=== PATIENT | male | born 1995 | race Caucasian/White ===

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

== ENCOUNTER 2017-01-15 18:37 | Emergency (ER) | payer SELFPAY ==
[~2017-01-15] VITALS: Wt 105.2 kg
[~2017-01-15 18:37] MED LIST changes: +AMOXICILLIN500 M2 PO
[2017-01-15] MEDS ORDERED: PREDNISONE10 MG PO (19:15)
== END 2017-01-15 19:37 | disposition home or self-care (01) ==
LOC: ED 18:37
DX: L23.7 Allergic contact dermatitis due to plants, except food (principal); Z88.0 Allergy status to penicillin; Z79.899 Other long term (current) drug therapy

== ENCOUNTER 2017-06-06 18:19 | Emergency (ER) | payer SELFPAY ==
[~2017-06-06] VITALS: Ht 193 cm; Wt 108.9 kg
[~2017-06-06 18:19] MED LIST changes: +PREDNISONE10 MG PO
[2017-06-06] MEDS ORDERED: CHLORZOXAZONE500 M2 PO (18:35)
[2017-06-06] MEDS ORDERED: NAPROSYN500 MG PO (18:35)
== END 2017-06-06 20:03 | disposition home or self-care (01) ==
LOC: ED 18:19
DX: M54.5 Low back pain (principal); R03.0 Elevated blood-pressure reading, without diagnosis of hypertension; Z88.0 Allergy status to penicillin; W00.0XXA Fall on same level due to ice and snow, initial encounter; Y93.89 Activity, other specified; Y92.89 Other specified places as the place of occurrence of the external cause; Y99.8 Other external cause status

== ENCOUNTER 2017-06-09 14:20 | Emergency (ER) | payer SELFPAY ==
[~2017-06-09] VITALS: Ht 193 cm; Wt 108.9 kg
[~2017-06-09 14:20] MED LIST changes: +CHLORZOXAZONE500 M2 PO
[2017-06-09 15:19] LABS: BASO % 0.2 % (0.0-1.0); EOS # 0.3 10*3/uL (0.0-0.4); EOS % 5.1 % (1.0-4.0); HEMATOCRIT 44.2 % (42.0-52.0); HEMOGLOBIN 15.1 g/dl (14.0-18.0); LYMPH # 1.7 10*3/uL (1.3-4.4); LYMPH % 28.8 % (27.0-41.0); MEAN CELL VOLUME 84.8 fl (80.0-94.0); MEAN CORPUSCULAR HGB CONC 34.2 g/dl (33.0-37.0); MEAN PLATELET VOLUME 9.2 fl (9.6-12.3); MONO # 0.3 10*3/uL (0.1-1.0); MONO % 5.6 % (3.0-9.0); NEUT # 3.4 10*3/uL (2.3-7.9); NEUT % 60.1 % (47.0-73.0); PLATELET COUNT AUTOMATED 201 10*3/uL (130-400); RED BLOOD COUNT 5.21 10*6/uL (4.50-5.90); RED CELL DISTRI WIDTH 13.4 % (0-14.5); WHITE BLOOD COUNT 5.7 10*3/uL (4.8-10.8)
[2017-06-09 15:36] LABS: ALKALINE PHOSPHATASE 84 U/L (45-117); BUN 10 mg/dl (7-24); CHLORIDE 107 mmol/L (98-107); CREATININE 0.91 mg/dL (0.70-1.30); SGOT/AST 23 IU/L (3-35); SGPT/ALT 32 U/L (12-78); SODIUM 142 mmol/L (136-145)
[2017-06-09] MEDS ORDERED: CEPHALEXIN500 M1 PO (16:15)
[2017-06-09] MEDS ORDERED: SEPTDS PO (16:15)
[2017-06-09] MEDS ORDERED: NORCO 5-325 TA1 EACH PO (16:29)
[2017-06-09] MEDS ORDERED: CLINDAMYCIN HC300 MG PO (16:29)
== END 2017-06-09 16:39 | disposition home or self-care (01) ==
LOC: ED 14:20
PROVIDERS: Physician Assistant
DX: K61.1 Rectal abscess (principal); Z79.899 Other long term (current) drug therapy; Z88.0 Allergy status to penicillin

== ENCOUNTER 2017-06-16 05:51 | Emergency (ER) | payer SELFPAY ==
[~2017-06-16] VITALS: Ht 193 cm; Wt 108.9 kg
[~2017-06-16 05:51] MED LIST changes: +CEPHALEXIN500 M1 PO; +CLINDAMYCIN HC300 MG PO; +NORCO 5-325 TA1 EACH PO; +SEPTDS PO
[2017-06-16] MEDS ORDERED: ANUSOL-HC25 MG R (06:07)
== END 2017-06-16 06:31 | disposition home or self-care (01) ==
LOC: ED 05:51
DX: K64.4 Residual hemorrhoidal skin tags (principal); Z88.0 Allergy status to penicillin; Z79.899 Other long term (current) drug therapy

== ENCOUNTER 2017-11-25 22:51 | Emergency (ER) | payer SELFPAY ==
[~2017-11-25] VITALS: Ht 193 cm; Wt 113.4 kg
[~2017-11-25 22:51] MED LIST changes: +ANUSOL-HC25 MG R
[2017-11-26 00:12] LABS: BASO % 0.1 % (0.0-1.0); EOS # 0.3 10*3/uL (0.0-0.4); EOS % 3.2 % (1.0-4.0); HEMATOCRIT 47.6 % (42.0-52.0); HEMOGLOBIN 15.9 g/dl (14.0-18.0); LYMPH # 2.3 10*3/uL (1.3-4.4); LYMPH % 23.2 % (27.0-41.0); MEAN CELL VOLUME 86.5 fl (80.0-94.0); MEAN CORPUSCULAR HGB 28.9 pg (27.0-31.0); MEAN CORPUSCULAR HGB CONC 33.4 g/dl (33.0-37.0); MONO # 0.6 10*3/uL (0.1-1.0); MONO % 5.7 % (3.0-9.0); NEUT # 6.8 10*3/uL (2.3-7.9); NEUT % 67.5 % (47.0-73.0); PLATELET COUNT AUTOMATED 228 10*3/uL (130-400); RED CELL DISTRI WIDTH 13.2 % (0-14.5)
[2017-11-26 00:19] LABS: ALBUMIN 3.9 gm/dl (3.1-4.5); ALKALINE PHOSPHATASE 86 U/L (45-117); BUN 11 mg/dl (7-24); CHLORIDE 106 mmol/L (98-107); CREATININE 1.13 mg/dL (0.70-1.30); POTASSIUM 3.7 mmol/L (3.5-5.1); SGOT/AST 22 IU/L (3-35); SGPT/ALT 34 U/L (12-78); SODIUM 141 mmol/L (136-145); TOTAL PROTEIN 7.3 gm/dL (6.4-8.2)
== END 2017-11-26 01:52 | disposition home or self-care (01) ==
LOC: ED 22:51
PROVIDERS: Nurse Practitioner
DX: B34.9 Viral infection, unspecified (principal); R10.13 Epigastric pain; Z79.899 Other long term (current) drug therapy; Z88.0 Allergy status to penicillin

== ENCOUNTER 2018-02-20 07:42 | Emergency (ER) | payer BC ==
[~2018-02-20] VITALS: Ht 193 cm; Wt 113.4 kg
[2018-02-20] MEDS ORDERED: ZOFRAN ODT4 MG SL (07:55)
[2018-02-20] MEDS ORDERED: ZITHROMAX250 MG PO (07:55)
[2018-02-20] MEDS ORDERED: IMODIUM A-D2 M2 PO (07:55)
== END 2018-02-20 07:57 | disposition home or self-care (01) ==
LOC: ED 07:42
DX: J20.9 Acute bronchitis, unspecified (principal); K52.9 Noninfective gastroenteritis and colitis, unspecified; Z88.0 Allergy status to penicillin

== ENCOUNTER 2018-04-04 12:22 | Emergency (ER) | payer BC ==
[~2018-04-04] VITALS: Ht 193 cm; Wt 111.1 kg
[~2018-04-04 12:22] MED LIST changes: +IMODIUM A-D2 M2 PO; +ZITHROMAX250 MG PO
[2018-04-04] MEDS ORDERED: Fioricet 325 MG1 TAB PO (13:16)
== END 2018-04-04 13:12 | disposition home or self-care (01) ==
LOC: ED 12:22
DX: R51 Headache (principal); H53.8 Other visual disturbances; F17.200 Nicotine dependence, unspecified, uncomplicated; Z88.0 Allergy status to penicillin

== ENCOUNTER 2018-06-07 05:19 | Emergency (ER) | payer BC ==
[~2018-06-07] VITALS: Ht 193 cm; Wt 113.4 kg
[~2018-06-07 05:19] MED LIST changes: +Fioricet 325 MG1 TAB PO
[2018-06-07] MEDS ORDERED: CLARITIN10 MG PO (06:08)
== END 2018-06-07 06:44 | disposition home or self-care (01) ==
LOC: ED 05:19
DX: B34.9 Viral infection, unspecified (principal); F17.200 Nicotine dependence, unspecified, uncomplicated; Z88.0 Allergy status to penicillin

== ENCOUNTER 2018-06-14 23:59 | Emergency (ER) | payer BC ==
[~2018-06-14] VITALS: Ht 193 cm; Wt 108.9 kg
== END 2018-06-15 01:14 | disposition home or self-care (01) ==
LOC: ED 23:59
DX: S62.316A Displaced fracture of base of fifth metacarpal bone, right hand, initial encounter for closed fracture (principal); S62.91XA Unspecified fracture of right hand, initial encounter for closed fracture; S60.412A Abrasion of right middle finger, initial encounter; Z88.0 Allergy status to penicillin; W22.01XA Walked into wall, initial encounter; Y93.89 Activity, other specified; Y92.89 Other specified places as the place of occurrence of the external cause; Y99.8 Other external cause status

== ENCOUNTER → 2018-06-16 | Outpatient (CLI) | payer BC | END | disposition home or self-care (01) | LOC: ORTHO 00:29 | DX: S62.306D Unspecified fracture of fifth metacarpal bone, right hand, subsequent encounter for fracture with routine healing (principal); X58.XXXD Exposure to other specified factors, subsequent encounter ==

== ENCOUNTER → 2018-08-17 | Outpatient (CLI) | payer BC | END | disposition home or self-care (01) | LOC: ORTHO 01:06 | DX: S62.306D Unspecified fracture of fifth metacarpal bone, right hand, subsequent encounter for fracture with routine healing (principal); X58.XXXD Exposure to other specified factors, subsequent encounter ==

== ENCOUNTER → 2018-08-31 | Outpatient (CLI) | payer BC | END | disposition home or self-care (01) | LOC: ORTHO 01:13 | DX: S62.306D Unspecified fracture of fifth metacarpal bone, right hand, subsequent encounter for fracture with routine healing (principal); X58.XXXD Exposure to other specified factors, subsequent encounter ==

== ENCOUNTER 2018-10-14 18:12 | Emergency (ER) | payer BC ==
[~2018-10-14] VITALS: Ht 193 cm; Wt 108.9 kg
[2018-10-14] MEDS ORDERED: CLINDAMYCIN HC300 MG PO (18:30)
[2018-10-14] MEDS ORDERED: NAPROSYN500 MG PO (18:30)
[2018-12-26] MEDS ORDERED: NAPROSYN500 MG PO (19:05)
[2018-12-26] MEDS ORDERED: MEDROL DOSEPAK4 MG PO (19:05)
[2018-12-26] MEDS ORDERED: ROBAXIN500 M1 PO (19:05)
== END 2018-10-14 18:40 | disposition home or self-care (01) ==
LOC: ED 18:12
DX: K04.7 Periapical abscess without sinus (principal); Z88.0 Allergy status to penicillin; Z79.899 Other long term (current) drug therapy

== ENCOUNTER 2020-01-23 19:55 | Emergency (ER) | payer OTHER ==
[~2020-01-23] VITALS: Ht 195.5 cm; Wt 111.1 kg
[~2020-01-23 19:55] MED LIST changes: +ROBAXIN500 M1 PO
[2020-01-23] MEDS ORDERED: IBUPROFEN600 MG PO (22:57)
== END 2020-01-23 23:55 | disposition home or self-care (01) ==
LOC: ED 19:55
DX: S93.602A Unspecified sprain of left foot, initial encounter (principal); F90.9 Attention-deficit hyperactivity disorder, unspecified type; F17.200 Nicotine dependence, unspecified, uncomplicated; Z88.0 Allergy status to penicillin; Z79.899 Other long term (current) drug therapy; Z79.2 Long term (current) use of antibiotics; W18.49XA Other slipping, tripping and stumbling without falling, initial encounter; Y93.01 Activity, walking, marching and hiking; Y92.89 Other specified places as the place of occurrence of the external cause; Y99.8 Other external cause status

== ENCOUNTER 2020-03-08 11:45 | Emergency (ER) | payer OTHER ==
[~2020-03-08 11:45] MED LIST changes: +IBUPROFEN600 MG PO
[2020-03-08 13:06] LABS: BASO % 0.1 % (0.0-1.0); EOS # 0.2 10*3/uL (0.0-0.4); EOS % 2.4 % (1.0-4.0); HEMATOCRIT 48.4 % (42.0-52.0); LYMPH # 1.2 10*3/uL (1.3-4.4); LYMPH % 16.4 % (27.0-41.0); MEAN CELL VOLUME 84.6 fl (80.0-94.0); MEAN CORPUSCULAR HGB 28.8 pg (27.0-31.0); MEAN CORPUSCULAR HGB CONC 34.1 g/dl (33.0-37.0); MEAN PLATELET VOLUME 8.6 fl (9.6-12.3); MONO # 0.7 10*3/uL (0.1-1.0); MONO % 8.8 % (3.0-9.0); NEUT # 5.4 10*3/uL (2.3-7.9); PLATELET COUNT AUTOMATED 223 10*3/uL (130-400); RED BLOOD COUNT 5.72 10*6/uL (4.50-5.90); RED CELL DISTRI WIDTH 12.6 % (0-14.5); WHITE BLOOD COUNT 7.5 10*3/uL (4.8-10.8)
[2020-03-08 13:22] LABS: ALBUMIN 4.2 gm/dl (3.1-4.5); ALKALINE PHOSPHATASE 87 U/L (45-117); BUN 13 mg/dl (7-24); CHLORIDE 109 mmol/L (98-107); CREATININE 1.04 mg/dL (0.70-1.30); LIPASE 35 U/L (73-393); POTASSIUM 4.3 mmol/L (3.5-5.1); SGOT/AST 32 IU/L (3-35); SGPT/ALT 50 U/L (12-78); SODIUM 140 mmol/L (136-145); TOTAL PROTEIN 7.7 gm/dL (6.4-8.2)
[2020-03-08] MEDS ORDERED: CEFUROXIME250 MG PO ×2 (14:00)
== END 2020-03-08 14:12 | disposition home or self-care (01) ==
LOC: ED 11:45
PROVIDERS: Nurse Practitioner Family
DX: H66.91 Otitis media, unspecified, right ear (principal); Z88.0 Allergy status to penicillin; Z79.899 Other long term (current) drug therapy; Z20.828 Contact with and (suspected) exposure to other viral communicable diseases

== ENCOUNTER 2020-03-27 17:32 | Emergency (ER) | payer OTHER ==
[~2020-03-27] VITALS: Ht 195.5 cm; Wt 108.9 kg
[~2020-03-27 17:32] MED LIST changes: +CEFUROXIME250 MG PO
[2020-03-27] MEDS ORDERED: CYCLOBENZAPRINE5 M3 PO (19:20)
[2020-03-27] MEDS ORDERED: MEDROL DOSEPAK4 MG PO (19:20)
== END 2020-03-27 19:51 | disposition home or self-care (01) ==
LOC: ED 17:32
DX: S39.012A Strain of muscle, fascia and tendon of lower back, initial encounter (principal); Z88.0 Allergy status to penicillin; W10.8XXA Fall (on) (from) other stairs and steps, initial encounter; Y93.89 Activity, other specified; Y92.89 Other specified places as the place of occurrence of the external cause; Y99.8 Other external cause status

== ENCOUNTER 2020-05-09 13:46 | Emergency (ER) | payer OTHER ==
[~2020-05-09] VITALS: Wt 113.4 kg
[~2020-05-09 13:46] MED LIST changes: +CYCLOBENZAPRINE5 M3 PO
== END 2020-05-09 16:23 | disposition home or self-care (01) ==
LOC: ED 13:46
DX: R11.2 Nausea with vomiting, unspecified (principal); R10.10 Upper abdominal pain, unspecified; Z53.21 Procedure and treatment not carried out due to patient leaving prior to being seen by health care provider

== ENCOUNTER 2020-05-15 07:47 | Emergency (ER) | payer OTHER ==
[~2020-05-15] VITALS: Ht 195.5 cm; Wt 113.4 kg
[2020-05-15 08:32] LABS: BASO % 0.3 % (0.0-1.0); EOS # 0.1 10*3/uL (0.0-0.4); EOS % 1.8 % (1.0-4.0); HEMATOCRIT 46.2 % (42.0-52.0); LYMPH # 1.8 10*3/uL (1.3-4.4); LYMPH % 24.8 % (27.0-41.0); MEAN CELL VOLUME 85.1 fl (80.0-94.0); MEAN CORPUSCULAR HGB 28.5 pg (27.0-31.0); MEAN CORPUSCULAR HGB CONC 33.5 g/dl (33.0-37.0); MONO # 0.4 10*3/uL (0.1-1.0); MONO % 4.9 % (3.0-9.0); NEUT # 4.9 10*3/uL (2.3-7.9); NEUT % 67.9 % (47.0-73.0); PLATELET COUNT AUTOMATED 232 10*3/uL (130-400); RED BLOOD COUNT 5.43 10*6/uL (4.50-5.90); RED CELL DISTRI WIDTH 13.1 % (0-14.5); WHITE BLOOD COUNT 7.2 10*3/uL (4.8-10.8)
[2020-05-15 08:46] LABS: ALBUMIN 3.6 gm/dl (3.1-4.5); ALKALINE PHOSPHATASE 85 U/L (45-117); BUN 13 mg/dl (7-24); CHLORIDE 109 mmol/L (98-107); CREATININE 0.91 mg/dL (0.70-1.30); LIPASE 57 U/L (73-393); SGOT/AST 30 IU/L (3-35); SGPT/ALT 40 U/L (12-78); SODIUM 140 mmol/L (136-145); TOTAL PROTEIN 6.7 gm/dL (6.4-8.2)
[2020-05-15] MEDS ORDERED: PEPCID20 MG PO (09:23)
== END 2020-05-15 09:50 | disposition home or self-care (01) ==
LOC: ED 07:47
PROVIDERS: Emergency Medicine
DX: K29.70 Gastritis, unspecified, without bleeding (principal); R11.2 Nausea with vomiting, unspecified; F31.9 Bipolar disorder, unspecified; F90.9 Attention-deficit hyperactivity disorder, unspecified type; Z88.0 Allergy status to penicillin; Z79.899 Other long term (current) drug therapy

== ENCOUNTER 2021-01-31 05:26 | Emergency (ER) | payer OTHER ==
[~2021-01-31] VITALS: Ht 195.5 cm; Wt 113.4 kg
[~2021-01-31 05:26] MED LIST changes: +PEPCID20 MG PO
[2021-01-31 06:21] LABS: BASO % 0.3 % (0.0-1.0); EOS # 0.2 10*3/uL (0.0-0.4); EOS % 3.3 % (1.0-4.0); HEMATOCRIT 46.7 % (42.0-52.0); LYMPH # 2.1 10*3/uL (1.3-4.4); LYMPH % 30.9 % (27.0-41.0); MEAN CELL VOLUME 86.8 fl (80.0-94.0); MEAN CORPUSCULAR HGB 29.7 pg (27.0-31.0); MEAN CORPUSCULAR HGB CONC 34.3 g/dl (33.0-37.0); MONO # 0.5 10*3/uL (0.1-1.0); MONO % 7.2 % (3.0-9.0); NEUT % 58.2 % (47.0-73.0); PLATELET COUNT AUTOMATED 209 10*3/uL (130-400); RED BLOOD COUNT 5.38 10*6/uL (4.50-5.90); RED CELL DISTRI WIDTH 12.9 % (0-14.5); WHITE BLOOD COUNT 6.9 10*3/uL (4.8-10.8)
[2021-01-31 06:41] LABS: ALBUMIN 3.9 gm/dl (3.1-4.5); ALKALINE PHOSPHATASE 72 U/L (45-117); BUN 14 mg/dl (7-24); CHLORIDE 108 mmol/L (98-107); CREATININE 0.96 mg/dL (0.70-1.30); POTASSIUM 3.9 mmol/L (3.5-5.1); SGOT/AST 18 IU/L (3-35); SGPT/ALT 37 U/L (12-78); SODIUM 138 mmol/L (136-145); TOTAL PROTEIN 7.2 gm/dL (6.4-8.2)
== END 2021-01-31 07:04 | disposition home or self-care (01) ==
LOC: ED 05:26
PROVIDERS: Emergency Medicine
DX: R07.89 Other chest pain (principal); R07.81 Pleurodynia; Z88.0 Allergy status to penicillin; Z88.1 Allergy status to other antibiotic agents; Z79.899 Other long term (current) drug therapy; X50.1XXA Overexertion from prolonged static or awkward postures, initial encounter; Y93.89 Activity, other specified; Y92.89 Other specified places as the place of occurrence of the external cause; Y99.8 Other external cause status

== ENCOUNTER 2021-02-19 04:50 | Emergency (ER) | payer OTHER | END 2021-02-19 05:07 | disposition left against medical advice (07) | LOC: ED 04:50 | DX: R43.8 Other disturbances of smell and taste (principal); R05.9 Cough, unspecified; Z53.21 Procedure and treatment not carried out due to patient leaving prior to being seen by health care provider ==